=== PATIENT | male | born 1995 | race African-American/Black ===

== ENCOUNTER 2017-08-23 19:44 | Emergency (ER) | payer OTHER ==
[~2017-08-23] VITALS: Ht 180.3 cm; Wt 68.9 kg
[2017-08-23] MEDS ORDERED: diphenhydrAMINE 50 MG/ML VIAL ONE (20:16)
[2017-08-23] MEDS ORDERED: FAMOTIDINE 20 MG/2 ML VIAL ONE (20:17)
[2017-08-23] MEDS ORDERED: methylPREDNISolone SOD SUCC PF 125 MG/2 ML VIAL. ONE (20:17)
[2017-08-23] MEDS ORDERED: FAMOTIDINE 20 MG/2 ML VIAL IVP ONE (20:30)
[2017-08-23] MEDS ORDERED: diphenhydrAMINE 50 MG/ML VIAL IVP ONE (20:30)
[2017-08-23] MEDS ORDERED: methylPREDNISolone SOD SUCC PF 125 MG/2 ML VIAL. IV ONE (20:30)
--- NOTE | 2017-08-23 20:44 | PHYS DOC ---
General Chief Complaint: ALLERGIC REACTION Stated Complaint: ALLERGIC REACTION Time Seen by MD: 20:43 Source: patient Exam Limitations: no limitations Problems: History of Present Illness Initial Comments Patient is a 22-year-old male brought to the ED by family member with a reported allergic reaction. Patient states that immediately prior to arrival he ate shrimp stirfry and while eating developed full body warmth and tingling in his throat. Shortly thereafter he developed a bright red rash over his whole body and was complaining of severe itching. Patient states he is eaten shrimp in the past without any difficulty. On arrival he is in no respiratory distress airway is patent saturation on room air is 97%. Due to extremely high ED patient volume and acuity allergy medications are ordered intravenously prior to my seeing the patient. Timing/Duration: 1/2 hour Severity: severe Modifying Factors: worse with eating Associated Symptoms: rash Allergies: Coded Allergies: No Known Drug Allergies (Unverified , 08/23/17) Past Medical History Medical History: no pertinent history Surgical History: no surgical history Social History Smoker: non-smoker Alcohol: none Drugs: none Review of Systems Constitutional: denies chills, denies fever, denies malaise EENTM: see HPI, denies throat swelling, denies mouth swelling Respiratory: denies cough, denies shortness of breath, denies wheezing Cardiovascular: denies chest pain, denies palpitations Gastrointestinal: denies nausea, denies vomiting Musculoskeletal: denies joint swelling, denies neck pain Skin: see HPI Psychiatric/Neurological: denies headache, denies numbness, denies paresthesia Immunological/Allergic: see HPI Physical Exam General Appearance: WD/WN, mild distress Eyes: bilateral eye normal inspection, bilateral eye PERRL, bilateral eye EOMI Ear, Nose, Throat: hearing grossly normal, normal ENT inspection, normal pharynx, other (no soft tissue swelling airway is patent) Neck: non-tender, supple Respiratory: normal breath sounds, no respiratory distress Cardiovascular: normal peripheral pulses, regular rate, rhythm Extremities: normal range of motion, non-tender 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 Patient rechecked approximately one hour after receiving medications, he states that his rash and the tingling in his throat have completely resolved. I discussed food allergies and avoiding shrimp until cleared by his doctor. I discussed [id number] prescription medications as well as signs and symptoms to monitor and urgent indication to return to the emergency department. I discussed time off tomorrow and close Dr. guerra the patient and his family's questions were answered to their satisfaction they expressed agreement and understanding of the treatment plan. Departure Time of Disposition: 21:32 Disposition: 01 HOME, SELF-CARE Diagnosis: allergic reaction Condition: IMPROVED Patient Instructions: Food Allergy, [id number] Additional Instructions: Off work and school tomorrow, note given. As discussed avoid shrimp until cleared by your doctor. [id number] Benadryl and Pepcid per package instructions while taking prednisone. Prescription: Prednisone 20 mg quantity 10 Follow-up with Dr. Wagner in 2 days for recheck. Return to ED with new or changing symptoms. LORRI NUÑEZ DO Aug 23, 2017 20:44
[2017-08-23] MEDS ORDERED: PRED20TA PO (21:32)
[2017-08-23] MEDS ORDERED: predniSONE 20 MG TABLET PO ONE (22:00)
[2017-08-23 22:20] VITALS: BP 122/62
== END 2017-08-23 22:17 | disposition home or self-care (01) ==
LOC: ER 19:44
DX: T78.1XXA Other adverse food reactions, not elsewhere classified, initial encounter (principal); X58.XXXA Exposure to other specified factors, initial encounter
CPT/HCPCS: 96374; 96375; 99284; J1200; J2930; J7512; S0028

== ENCOUNTER 2020-06-18 21:37 | Emergency (ER) | payer OTHER ==
[~2020-06-18] VITALS: Ht 180.3 cm; Wt 73.4 kg
[~2020-06-18 21:37] MED LIST: PRED20TA PO
[2020-06-18 22:07] VITALS: BP 125/79
[2020-06-18] MEDS ORDERED: DIPH,PERTUSS(ACELL),TET VAC/PF 0.5 ML SYRINGE. VAX IM ONE (22:30)
--- NOTE | 2020-06-18 22:31 | PHYS DOC ---
Past History Past Medical History: No Pertinent History Past Surgical History: No Surgical History Alcohol Use: None Drug Use: None General Adult EDM: Chief Complaint: LACERATION/AVULSION HPI: HPI: 25 male presents with laceration of left index finger. He was taking a lid off of a metal dog food can when he slid his finger across the room and lacerated his finger. He was able get the bleeding controlled prior to arrival. He is concerned he might need stitches. His tetanus is not up-to-date. He denies any other injuries or complaints. Review of Systems: Review of Systems: Constitutional: Denies fever or chills Eyes: Denies change in visual acuity HENT: Denies nasal congestion or sore throat Respiratory: Denies cough or shortness of breath Cardiovascular: Denies chest pain or edema GI: Denies abdominal pain, nausea, vomiting, bloody stools or diarrhea : Denies dysuria Musculoskeletal: Denies back pain or joint pain Integument: Laceration left index finger Neurologic: Denies headache, focal weakness or sensory changes Endocrine: Denies polyuria or polydipsia Lymphatic: Denies swollen glands Psychiatric: Denies depression or anxiety Heart Score: Risk Factors: Risk Factors: DM, Current or recent (<one month) smoker, HTN, HLP, family history of CAD, obesity. Risk Scores: Score 0 - 3: 2.5% MACE over next 6 weeks - Discharge Home Score 4 - 6: 20.3% MACE over next 6 weeks - Admit for Clinical Observation Score 7 - 10: 72.7% MACE over next 6 weeks - Early Invasive Strategies Allergies: Allergies: Allergies Coded Allergies Type Severity Reaction Last Updated Verified No Known Drug Allergies 08/23/17 No Physical Exam: PE: Constitutional: Well developed, well nourished, no acute distress, non-toxic appearance. [] HENT: Normocephalic, atraumatic, bilateral external ears normal, oropharynx moist, no oral exudates, nose normal. [] Eyes: PERRLA, EOMI, conjunctiva normal, no discharge. [] Neck: Normal range of motion, no tenderness, supple, no stridor. [] Cardiovascular:Heart rate regular rhythm, no murmur [] Lungs & Thorax: Bilateral breath sounds clear to auscultation [] Abdomen: Bowel sounds normal, soft, no tenderness, no masses, no pulsatile masses. [] Skin: 1.5 cm linear laceration of the left index finger [] Back: No tenderness, no CVA tenderness. [] Extremities: No tenderness, no cyanosis, no clubbing, ROM intact, no edema. [] Neurologic: Alert and oriented X 3, normal motor function, normal sensory function, no focal deficits noted. [] Psychologic: Affect normal, judgement normal, mood normal. [] Current Patient Data: Vital Signs: Vital Signs Date Time Temp Pulse Resp B/P (MAP) Pulse Ox O2 Delivery O2 Flow Rate FiO2 06/18/20 22:07 98.0 60 14 125/79 (94) Room Air EKG: EKG: [] Radiology/Procedures: Radiology/Procedures: [] Course & Med Decision Making: Course & Med Decision Making Pertinent Labs and Imaging studies reviewed. (See chart for details) I was able to repair the wound with skin adhesive. See note below for more details. The patient's tetanus was updated in the emergency room. He is stable for discharge at this time. [] Dragon Disclaimer: Dragon Disclaimer: This electronic medical record was generated, in whole or in part, using a voice recognition dictation system. Laceration Repair Lac Repair Indication: [] 1.5 cm linear laceration of left index finger. Procedure: I obtained verbal consent from the patient for skin adhesive repair of the laceration of the left index finger. The wound was thoroughly cleaned with saline. No foreign bodies were found. No anesthesia was used. I placed 2 layers of Dermabond skin adhesive over the wound. A splint was applied to the finger to aid with healing for couple days. The patient's tetanus was updated in the emergency room. Total repaired wound length: 1.5 cm Other Items: None The patient tolerated the procedure well. Complications: None. Departure Departure: Impression: Primary Impression: Laceration of left index finger Qualified Codes: S61.211A - Laceration without foreign body of left index finger without damage to nail, initial encounter Disposition: 01 HOME/RESIDENCE PRIOR TO ADM Condition: STABLE Referrals: PCP,UNKNOWN (PCP) Patient Instructions: Tissue Adhesive Wound Care, [id number] JOE DE LEON DO Jun 18, 2020 22:31
== END 2020-06-18 22:42 | disposition home or self-care (01) ==
LOC: ER 21:37
DX: S61.211A Laceration without foreign body of left index finger without damage to nail, initial encounter (principal); W26.8XXA Contact with other sharp object(s), not elsewhere classified, initial encounter; Y93.89 Activity, other specified; Y92.89 Other specified places as the place of occurrence of the external cause; Y99.8 Other external cause status
CPT/HCPCS: 12001; 99282; 99283

== ENCOUNTER 2020-12-04 19:15 | Emergency (ER) | payer OTHER ==
[~2020-12-04] VITALS: Ht 180.3 cm; Wt 73.4 kg
[2020-12-04 19:15] VITALS: BP 151/87
[2020-12-04] MEDS ORDERED: AMOX1TAB61 PO ×2 (19:39→20:26)
--- NOTE | 2020-12-04 19:49 | PHYS DOC ---
Past History Past Medical History: No Pertinent History Past Surgical History: No Surgical History Alcohol Use: None Drug Use: None General Adult EDM: Chief Complaint: ANIMAL BITE HPI: HPI: Patient is a 5-year-old male who presents with dog bite to his right ear. 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 Patient reports that dog is up-to-date on vaccinations. Patient is not up-to-date on his tetanus vaccination. Patient denies any health history. Review of Systems: Review of Systems: Constitutional: Denies fever or chills Eyes: Denies change in visual acuity HENT: Denies nasal congestion or sore throat Respiratory: Denies cough or shortness of breath Cardiovascular: Denies chest pain or edema GI: Denies abdominal pain, nausea, vomiting, bloody stools or diarrhea : Denies dysuria Musculoskeletal: Denies back pain or joint pain Integument: Dog bite to right ear Neurologic: Denies headache, focal weakness or sensory changes Endocrine: Denies polyuria or polydipsia Lymphatic: Denies swollen glands Psychiatric: Denies depression or anxiety Allergies: Allergies: Allergies Coded Allergies Type Severity Reaction Last Updated Verified No Known Drug Allergies 08/23/17 No Physical Exam: PE: Constitutional: Well developed, well nourished, no acute distress, non-toxic appearance. [] HENT: Normocephalic, atraumatic, bilateral external ears normal, oropharynx moist, no oral exudates, nose normal. [] Eyes: PERRLA, EOMI, conjunctiva normal, no discharge. [] Neck: Normal range of motion, no tenderness, supple, no stridor. [] Cardiovascular:Heart rate regular rhythm, no murmur [] Lungs & Thorax: Bilateral breath sounds clear to auscultation [] Abdomen: Bowel sounds normal, soft, no tenderness, no masses, no pulsatile masses. [] Skin: Warm, dry, no erythema, no rash. [] Back: No tenderness, no CVA tenderness. [] Extremities: No tenderness, no cyanosis, no clubbing, ROM intact, no edema. [] Neurologic: Alert and oriented X 3, normal motor function, normal sensory function, no focal deficits noted. [] Psychologic: Affect normal, judgement normal, mood normal. [] EKG: EKG: [] Radiology/Procedures: Radiology/Procedures: [] Heart Score: C/O Chest Pain: No Risk Factors: Risk Factors: DM, Current or recent (<one month) smoker, HTN, HLP, family history of CAD, obesity. Risk Scores: Score 0 - 3: 2.5% MACE over next 6 weeks - Discharge Home Score 4 - 6: 20.3% MACE over next 6 weeks - Admit for Clinical Observation Score 7 - 10: 72.7% MACE over next 6 weeks - Early Invasive Strategies Course & Med Decision Making: Course & Med Decision Making Pertinent Labs and Imaging studies reviewed. (See chart for details) [] Patient given Augmentin, tetanus. Wound irrigated and Gelfoam applied. Patient instructed to follow-up with his PCP next week for wound check. Patient agrees with this plan. Patient is hemodynamically stable. Dragon Disclaimer: Minutta Disclaimer: This electronic medical record was generated, in whole or in part, using a voice recognition dictation system. Departure Departure: Impression: Primary Impression: Dog bite Qualified Codes: W54.0XXA - Bitten by dog, initial encounter Disposition: 01 DC HOME SELF CARE/HOMELESS Condition: STABLE Referrals: PCP,UNKNOWN (PCP) Patient Instructions: Animal Bite, [id number] Additional Instructions: You were seen in the emergency room today for a dog bite to your right ear. Make sure that you take antibiotics are prescribed in full. If you start showing signs of infection these return to the emergency room or to your PCP for further treatment. EMERGENCY DEPARTMENT GENERAL DISCHARGE INSTRUCTIONS Thank you for coming to [facility] (ED) today and trusting us with you care. We trust that you had a positivie experience in our Emergency Department. If you wish to speak to the department management, you may call the director at [phone]. YOUR FOLLOW UP INSTRUCTIONS ARE FOLLOWS: 1. Do you have a private Doctor? If you do not have a private doctor, please ask for a resource list of physicians or clinics that may be able to assist you with follow up care. 2. The Emergency Physician has interpreted your x-rays. The X-Ray specialist will also review them. If there is a change in the findings, you will be notified in 48 hours when at all possible. 3. A lab test or culture has been done, your results will be reviewed and you will be notified if you need a change in treatment. ADDITIONAL INSTRUCTIONS AND INFORMATION: 1. Your care today has been supervised by a physician who is specially trained in emergency care. Many problems require more than one evaluation for a complete diagnosis and treatment. We recommend that you schedule your follow up appointment as recommended to ensure complete treatment of you illness or injury. If you are unable to obtain follow up care and continue to have a problem, or if your condition worsens, we recommend that you return to the ED. 2. We are not able to safely determine your condition over the phone nor are we able to give sound medical advice over the phone. For these safety reasons, if you call for medical advice we will ask you to come to the ED for further evaluation. 3. If you have any questions regarding these discharge instructions please call the ED at [phone]. SAFETY INFORMATION: In the interest of safety, wellness, and injury prevention; we encourage you to wear your sealbelt, if you smoke; quite smoking, and we encourage family to use a protective helmet for bicycling and other sporting events that present an increased risk for head injury. IF YOUR SYMPTOMS WORSEN OR NEW SYMPTOMS DEVELOP, OR YOU HAVE CONCERNS ABOUT YOUR CONDITION; OR IF YOUR CONDITION WORSENS WHILE YOU ARE WAITING FOR YOUR FOLLOW UP APPOINTMENT; EITHER CONTACT YOUR PRIMARY CARE DOCTOR, THE PHYSICIAN WHOSE NAME AND NUMBER YOU WERE GIVEN, OR RETURN TO THE ED IMMEDIATELY. Scripts Amoxicillin/Potassium Clav (AUGMENTIN 875-125 TABLET) 1 Each Tablet 1 TAB PO BID for infection for 10 Days, #19 TAB 0 Refills Prov: MYRON CASTANEDA APRN 12/04/20 Hydrocodone Bit/Acetaminophen (HYDROCODONE-APAP 5-325 ) 1 Each Tablet 0.5-1 TAB PO PRN Q6HRS PRN for PAIN for 3 Days, #12 TAB 0 Refills Prov: MYRON CASTANEDA APRN 12/04/20 MYRON CASTANEDA APRN Dec 04, 2020 19:49
[2020-12-04] MEDS ORDERED: HYDR-2155 PO (19:55)
[2020-12-04] MEDS: GELATIN SPONGE SIZE 12-7MM SPONGE. TP ONE (20:06)
[2020-12-04] MEDS: DIPH,PERTUSS(ACELL),TET VAC/PF 0.5 ML SYRINGE. VAX IM ONE (20:06)
[2020-12-04] MEDS: HYDROcodone/APAP 5/325MG 1 TAB TABLET PO ONE (20:07)
[2020-12-04] MEDS: AMOXICILLIN/K CLAV 875/125MG TABLET. PO ONE (20:31)
== END 2020-12-04 20:34 | disposition home or self-care (01) ==
LOC: ER 19:15
DX: S01.351A Open bite of right ear, initial encounter (principal); W54.0XXA Bitten by dog, initial encounter; Y93.89 Activity, other specified; Y92.89 Other specified places as the place of occurrence of the external cause; Y99.8 Other external cause status
CPT/HCPCS: 90471; 90715; 99283